=== PATIENT | female | born 1990 ===

== ENCOUNTER 2019-08-01 17:18 | Emergency (ER) | payer OTHER ==
[~2019-08-01] VITALS: Ht 167.6 cm; Wt 63.5 kg
[2019-08-01 17:36] VITALS: BP 00/000; Ht 167.6 cm; Wt 63.5 kg
== END 2019-08-01 19:40 | disposition expired ==
LOC: ED 17:18
DX: I46.9 Cardiac arrest, cause unspecified (principal)